=== PATIENT | female | born 1960 | race Caucasian/White ===

== ENCOUNTER 2019-01-09 08:37 | Observation (INO) ==
[2019-01-09] MEDS ORDERED: ONDANSETRON 4 MG/2 ML VIAL IV STA (09:03)
[2019-01-09] MEDS ORDERED: fentaNYL 100 MCG/2 ML VIAL IV STA ×3 (09:03→11:06)
[2019-01-09] MEDS ORDERED: SODIUM CHLORIDE 0.9% 1,000 ML IV STA ×2 (09:03→11:09)
[2019-01-09 09:54] LABS: Basophils # 0.1 10*3/uL (0.0-0.2); Basophils % 1.2 % (0.0-0.8); Eosinophils # 0.1 10*3/uL (0.0-0.87); Eosinophils % 0.7 % (0.00-10.9); Hematocrit 43.2 VOL% (35.7-47.0); Hemoglobin 14.2 GM/DL (12.0-16.0); Immature Granulocytes % 1.2 %; Lymphocytes # 2.1 10*3/uL (1.4-4.0); Lymphocytes % 25.6 % (21.3-54.2); Mean Corpuscular HGB Conc 32.9 GM/DL (32-36); Mean Corpuscular Hemoglobin 29 PG (27-34); Mean Corpuscular Volume 88.7 FL (87-102); Mean Platelet Volume 10.3 FL (9.6-12.0); Monocytes # 0.7 10*3/uL (0.11-0.8); Monocytes % 8.1 % (1.7-12.7); Neutrophils # 5.2 10*3/uL (1.4-7.4); Neutrophils % 63.2 % (38.7-73.9); Platelet Count 184 T/CUMM (130-400); Red Blood Count 4.87 MC/CUMM (3.8-5.5); Red Cell Distribution Width 14.2 % (9.3-17.3); White Blood Count 8.3 T/CUMM (4-12)
[2019-01-09 10:02] LABS: Apearance,Urine CLOUDY (Clear); Bacteria,Urine Moderate /HPF (Few); Bilirubin,Urine Negative (Negative); Blood, Urine Large mg/dL (Negative); Calcium Oxalate Crystals,Urine Few /HPF (Few); Glucose,Urine (UA) Negative (Negative); Ketones,Urine Negative (Negative); Mucus,Urine Few /LPF (Occasional); Nitrite,Urine Negative (Negative); Protein,Urine 30 MG/DL; RBC,Urine 1679 /HPF (0-4); Squamous Epithelial Cell,Urine Occasional /HPF (0-10); Urine Color Amber (Yellow); Urine Specific Gravity 1.024 (1.001-1.035); Urine Urobilinogen < 2.0 EU/DL (0.2-1.0); WBC,Urine 7 /HPF (0-6)
[2019-01-09 10:13] LABS: Calcium 8.6 MG/DL (8.5-10.1); Potassium 3.3 MMOL/L (3.5-5.1)
[2019-01-09 10:15] LABS: Band Neutrophils 3 % (0-10); Eosinophils 1 % (0-10); Hypochromasia 1+; Lymphocytes 19 % (20-55); Platelet Estimate Adequate; Segmented Neutrophils 71 % (50-85); Total Cells Counted 100
[2019-01-09] MEDS ORDERED: fentaNYL 100 MCG/2 ML VIAL IV PRN (12:15)
[2019-01-09] MEDS ORDERED: PROMETHAZINE 25 MG/1 ML VIAL IM PRN (12:15)
[2019-01-09] MEDS ORDERED: ACETAMINOPHEN 325 MG TABLET PO PRN (12:15)
[2019-01-09] MEDS ORDERED: cefTRIAXone 1,000 MG in SYRINGE 1 EACH IV SCH (13:00)
[2019-01-09] MEDS: SODIUM CHLORIDE 0.45% 1,000 ML IV SCH ×3 (13:49→20:23)
[2019-01-09] MEDS: ONDANSETRON 4 MG/2 ML VIAL IV PRN (13:50)
[2019-01-09] MEDS: MEPERIDINE 25 MG/1 ML VIAL IV PRN (13:50)
[2019-01-09] MEDS: TAMSULOSIN 0.4 MG CAPSULE PO SCH ×2 (15:02→20:19)
[2019-01-09] MEDS ORDERED: PRAMIPEXOLE 1 MG TABLET PO SCH (21:00)
[2019-01-09] MEDS ORDERED: VENLAFAXINE XR 75 MG CAPSULE PO SCH (21:00)
[2019-01-10] MEDS: MEPERIDINE 25 MG/1 ML VIAL IV PRN (04:36)
[2019-01-10] MEDS: ONDANSETRON 4 MG/2 ML VIAL IV PRN (04:37)
[2019-01-10] MEDS: SODIUM CHLORIDE 0.45% 1,000 ML IV SCH (04:39)
[2019-01-10] MEDS ORDERED: cefTRIAXone 1,000 MG in SYRINGE 1 EACH IV ONE (06:00)
[2019-01-10] MEDS ORDERED: LEVOTHYROXINE 50 MCG TABLET PO SCH (07:00)
[2019-01-10] MEDS ORDERED: LIDOCAINE 2% TOP JELLY 20 ML VIAL INTRAURETH ONE (07:41)
[2019-01-10] MEDS ORDERED: PROPOFOL 200 MG/20 ML VIAL IV ONE (08:13)
[2019-01-10] MEDS ORDERED: PHENYLEPHRINE 10 MG/1 ML VIAL IV ONE (08:14)
[2019-01-10] MEDS ORDERED: ONDANSETRON 4 MG/2 ML VIAL ONE (08:14)
[2019-01-10] MEDS ORDERED: SUCCINYLCHOLINE 200 MG/10 ML VIAL ONE (08:14)
[2019-01-10] MEDS ORDERED: MIDAZOLAM 2 MG/2 ML VIAL ONE (08:14)
[2019-01-10] MEDS ORDERED: ALBUMIN 5% 12.5 GM/250 ML VIAL IV ONE (08:14)
[2019-01-10] MEDS ORDERED: ACETAMINOPHEN 1,000 MG/100 ML VIAL IV ONE (08:14)
[2019-01-10] MEDS ORDERED: ROCURONIUM 100 MG/10 ML VIAL IV ONE (08:14)
[2019-01-10] MEDS ORDERED: fentaNYL 100 MCG/2 ML VIAL ONE (08:14)
[2019-01-10] MEDS ORDERED: SEVOFLURANE 1 UNIT/15 MINUTE INH ONE (08:14)
[2019-01-10] MEDS ORDERED: DEXAMETHASONE 4 MG/1 ML VIAL ONE (08:14)
[2019-01-10] MEDS ORDERED: SUGAMMADEX 200 MG/2 ML VIAL IV ONE (08:16)
[2019-01-10] MEDS ORDERED: MONTELUKAST 10 MG TABLET PO SCH (09:00)
[2019-01-10] MEDS ORDERED: LOSARTAN/HCTZ 50-12.5 MG TABLET PO SCH (09:00)
[2019-01-10] MEDS ORDERED: lamoTRIgine 100 MG TABLET PO SCH (09:00)
[2019-01-10 14:38] VITALS: BP 109/69
== END 2019-01-10 13:45 | disposition home or self-care (01) ==
LOC: N.EDINP 08:37 → N.ED 08:37 → N.5E 11:45
PROVIDERS: ADMIT Urology; ATTEND Urology